=== PATIENT | male | born 1975 ===

== ENCOUNTER 2021-09-28 18:29 | Emergency (ER) | payer SELFPAY ==
[2021-09-28] MEDS ORDERED: ASPIRIN 81 MG TAB CHEW PO ONE (23:59)
[2021-09-28] MEDS ORDERED: NITROGLYCERIN 0.4 MG TAB SUBL SL ONE (23:59)
--- NOTE | 2021-09-29 00:06 | Emergency Department Report ---
ED Chest Pain HPI - General Chief Complaint: Chest Pain Stated Complaint: CHEST PAIN Time Seen by Provider: 09/28/21 23:59 Source: patient Mode of arrival: Ambulatory Limitations: No Limitations - History of Present Illness Initial Comments: 46 yo M who present with intermittent chest pain that started about 2 weeks ago. Family members was in the room helping with interpretation. Pt denies any fever or chills. No cough or palpitation reported. Pt however rated the pain as 8/10 in severity. He was seen at the [facility] where he was sent in for complete work up. No other modifying or associated factors reported. MD Complaint: chest pain - Related Data Previous Rx's Medication Instructions Recorded Last Taken Type Omeprazole Magnesium [PriLOSEC Otc] 20 mg PO QDAY 30 Days #30 tab NS 09/29/21 Unknown Rx Ondansetron (Nf) [Zofran TAB] 8 mg PO Q8HR PRN 7 Days #21 tablet 09/29/21 Unknown Rx NS hydrOXYzine PAMOATE [Vistaril] 25 mg PO Q6HR PRN 6 Days #24 09/29/21 Unknown Rx capsule NS Allergies Allergy/AdvReac Type Severity Reaction Status Date / Time No Known Allergies Allergy Unverified 09/28/21 18:36 Heart Score - HEART Score History: Slightly suspicious EKG: Normal Age: 45-65 Risk factors: No known risk factors Troponin: < normal limit HEART Score: 1 - EKG Read Time Time EKG Completed: 18:28 EKG Read Time: 18:34 - Critical Actions Critical Actions: 0-3 pts:0.9-1.7%risk of adverse cardiac event.Candidate for discharge ED Review of Systems ROS: Stated complaint: CHEST PAIN Other details as noted in HPI Comment: All other systems reviewed and negative Cardiovascular: chest pain ED Past Medical Hx - Past Medical History Previous Medical History?: No - Surgical History Past Surgical History?: No - Medications Home Medications: Home Medications Medication Instructions Recorded Confirmed Last Taken Type Omeprazole Magnesium [PriLOSEC Otc] 20 mg PO QDAY 30 Days #30 tab NS 09/29/21 Unknown Rx Ondansetron (Nf) [Zofran TAB] 8 mg PO Q8HR PRN 7 Days #21 tablet 09/29/21 Unknown Rx NS hydrOXYzine PAMOATE [Vistaril] 25 mg PO Q6HR PRN 6 Days #24 08/12/22 Unknown Rx capsule NS ED Physical Exam - General Limitations: No Limitations General appearance: alert, in no apparent distress - Head Head exam: Present: normal inspection - Eye Eye exam: Present: normal appearance Pupils: Present: normal accommodation - ENT ENT exam: Present: normal exam, normal orophraynx, mucous membranes moist - Neck Neck exam: Present: normal inspection, full ROM. Absent: tenderness - Respiratory Respiratory exam: Present: normal lung sounds bilaterally. Absent: respiratory distress, accessory muscle use - Cardiovascular Cardiovascular Exam: Present: regular rate, normal rhythm, normal heart sounds - GI/Abdominal GI/Abdominal exam: Present: soft, normal bowel sounds. Absent: distended, tenderness - Extremities Exam Extremities exam: Present: normal inspection, normal capillary refill - Back Exam Back exam: Present: normal inspection. Absent: tenderness - Neurological Exam Neurological exam: Present: alert, oriented X3 - Psychiatric Psychiatric exam: Present: normal affect, normal mood - Skin Skin exam: Present: warm, normal color ED Course Vital Signs 09/28/21 09/29/21 18:31 00:27 Temperature 98.9 F Pulse Rate 64 55 L Respiratory 17 Rate Blood Pressure 105/74 Blood Pressure 114/64 [Left] O2 Sat by Pulse 99 Oximetry MEHREEN score - Mehreen Score Age > 65: (0) No Aspirin use within the Past 7 Days: (0) No 3 or more CAD Risk Factors: (0) No 2 or more Angina events in past 24 hrs: (0) No Known CAD with more than 50% Stenosis: (0) No Elevated Cardiac Markers: (0) No ST Deviation Greater than 0.5mm: (0) No MEHREEN Score: 0 ED Medical Decision Making - Lab Data Result diagrams: 09/29/21 00:15 09/29/21 00:15 - EKG Data -: EKG Interpreted by Ca EKG shows normal: sinus rhythm Rate: normal - EKG Data 09/29/21 00:08 Here with chest pain/pressure--differential could be but not limited to myocardial infarction, pulmonary embolism, costochondritis, anxiety, gastritis, GERD, pancreatitis, and or pyelonephritis--in order to rule out the above-- so will go ahead and order routine cardiopulmonary work-up that include troponin, EKG, chest x-ray, BNP, CKMB, and CBC, CMP and urinalysis for any correctable infectious process or electrolyte abnormality as a cause. Given aspirin 324 mg PO x 1 and Nitro 0.4 mg SL x 1-- as patient still rating pain as 8/10 - Medical Decision Making Here with chest pain/pressure--differential could be but not limited to myocardial infarction, pulmonary embolism, costochondritis, anxiety, gastritis, GERD, pancreatitis, and or pyelonephritis--in order to rule out the above-- so will go ahead and order routine cardiopulmonary work-up that include troponin, EKG, chest x-ray, BNP, CKMB, and CBC, CMP and urinalysis for any correctable infectious process or electrolyte abnormality as a cause. Given aspirin 324 p.o. x1 and because the blood pressure is slightly soft at around systolic 100 we will hold giving nitro at this point Initial EKG is unremarkable coupled with normal troponin--for chest pain has been going on for about 2 weeks with a normal troponin and normal EKG this is likely noncardiac--with blood other etiology such as GI--patient reassured and sent home on Vistaril and Prilosec with zofran with close follow up Critical care attestation.: If time is entered above; I have spent that time in minutes in the direct care of this critically ill patient, excluding procedure time. ED Disposition Clinical Impression: Non-cardiac chest pain GERD (gastroesophageal reflux disease) Qualifiers: Esophagitis presence: esophagitis presence not specified Qualified Code(s): K21.9 - Gastro-esophageal reflux disease without esophagitis Disposition: 01 HOME / SELF CARE / HOMELESS Is pt being admited?: No Does the pt Need Aspirin: No Condition: Stable Instructions: Food Choices for Gastroesophageal Reflux Disease, Adult, [id number], Food Choices for Gastroesophageal Reflux Disease, Adult, Nonspeci fic Chest Pain, Adult, [id number] Additional Instructions: Avoid spicy or heavy fatty meal to prevent worsening of your symptoms Increase your daily fluid to help your hydration Call and follow up with your doctor in 3-5 days for progress Call or return to ED if your symptoms worsen Prescriptions: Omeprazole Magnesium [PriLOSEC Otc] 20 mg PO QDAY 30 Days #30 tab NS hydrOXYzine PAMOATE [Vistaril] 25 mg PO Q6HR PRN 6 Days #24 capsule NS PRN Reason: Pain , Severe (7-10) Ondansetron (Nf) [Zofran TAB] 8 mg PO Q8HR PRN 7 Days #21 tablet NS PRN Reason: Nausea Referrals: PRIMARY CARE,MD [Primary Care Provider] - 3-5 Days Time of Disposition: 05:31
[2021-09-29 00:22] LABS: Mucus,Urine FEW /HPF
[2021-09-29 00:23] LABS: Bilirubin,Urine Negative (Negative); Blood,Urine Negative (Negative); Color,Urine Yellow (Yellow)
[2021-09-29 00:24] LABS: Protein,Urine <15 mg/dL mg/dL (Negative); Urobilinogen,Urine 0.2 mg/dL (<2.0)
[2021-09-29 00:27] LABS: RBC,Urine < 1.0 /HPF (0.0-6.0); WBC,Urine < 1.0 /HPF (0.0-6.0)
--- NOTE | 2021-09-29 00:30 | XRay Report ---
XR chest routine 2V INDICATION / CLINICAL INFORMATION: Chest Pain. COMPARISON: None available. FINDINGS: SUPPORT DEVICES: None. HEART /PULMONARY VASCULATURE: No significant abnormality. LUNGS / PLEURA: No significant pulmonary or pleural abnormality. No pneumothorax. ADDITIONAL FINDINGS: No significant additional findings. IMPRESSION: 1. No acute findings. Signer Name: Jacky Gunter MD Signed: 09/29/2021 12:25 AM Workstation Name: [id number]
[2021-09-29 00:31] LABS: Basophils # (Auto) 0.1 K/mm3 (0.0-0.1); Basophils % (Auto) 0.9 % (0.0-1.8); Eosinophils # (Auto) 0.3 K/mm3 (0.0-0.4); Eosinophils % (Auto) 3.1 % (0.0-4.3); Hematocrit 45.3 % (35.5-45.6); Hemoglobin 15.4 gm/dl (11.8-15.2); Lymphocytes # (Auto) 3.7 K/mm3 (1.2-5.4); Lymphocytes % (Auto) 45.9 % (13.4-35.0); Mean Corpuscular HGB Conc 34 % (32-34); Mean Corpuscular Volume 88 fl (84-94); Monocytes # (Auto) 0.7 K/mm3 (0.0-0.8); Monocytes % (Auto) 8.4 % (0.0-7.3); Platelet Count 220 K/mm3 (140-440); Red Blood Count 5.13 M/mm3 (3.65-5.03); Red Cell Distribution Width 14.6 % (13.2-15.2)
[2021-09-29 00:43] LABS: INR 0.94 (0.87-1.13)
[2021-09-29 00:51] LABS: Alanine Aminotransferase 28 units/L (7-56); Albumin 4.3 g/dL (3.9-5); Blood Urea Nitrogen 18 mg/dL (9-20); Calcium 9.1 mg/dL (8.4-10.2); Hemolysis Index 24
[2021-09-29 01:10] LABS: BUN/Creatinine Ratio 26
[2021-09-29 06:10] VITALS: BP 99/69
--- NOTE | 2021-09-29 08:57 | Electrocardiograph Report ---
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
== END 2021-09-29 06:09 | disposition home or self-care (01) ==
LOC: ED 18:29
DX: R07.9 Chest pain, unspecified (principal); K21.9 Gastro-esophageal reflux disease without esophagitis
CPT/HCPCS: 36415; 71046; 80053; 81001; 83690; 84484; 85025; 85610; 85730; 93005; 99284